=== PATIENT | male | born 1990 ===

== ENCOUNTER 2018-07-22 21:25 | Emergency (ER) | payer MEDICAID ==
[2018-07-22 22:29] VITALS: BMI 25.0
--- NOTE | 2018-07-22 23:18 | ED PDOC ---
Arrival/HPI - General Chief Complaint: Chest Pain Time Seen by Provider: 07/22/18 22:30 - History of Present Illness Narrative History of Present Illness (Text): 07/22/18 23:17 27-year-old male with no significant past medical history, reports developing intermittent plapitations, midsternal chest discomfort, and difficulty sleeping which started early this morning after he went out drinking that night at a [employer]. He was told by his friends that the rum punch he was drinking from may have been "spiked." He states that he recalls the entire events from last night, and did not pass out. Reports no chest pain or palpitations now. Otherwise: (-) radiation, (-) diaphoresis, (-) dyspnea, (-) pleuritic component, (-) ripping or tearing quality, (-) positional component, (-) exertional component, (-) dizziness, (-) syncope, (-) abdominal pain, (-) nausea, (-) vomiting, (-) calf swelling/pain, (-) recent travel, (-) drug use, (-) neuro deficits. Past Medical History - Infectious Disease Hx of Infectious Diseases: None - Psychiatric Hx Substance Use: No Family/Social History Family/Social History: No Known Family HX Smoking Status: Never Smoked Hx Alcohol Use: No Hx Substance Use: No Allergies/Home Meds Allergies/Adverse Reactions: Allergies No Known Allergies Allergy (Verified 07/22/18 22:29) Home Medications: Home Meds Medication Instructions Recorded Confirmed No Known Home Med 07/22/18 07/22/18 Review of Systems - Review of Systems Constitutional: absent: Fatigue, Fevers Respiratory: absent: SOB, Cough Cardiovascular: Chest Pain, Palpitations. absent: Edema Gastrointestinal: absent: Abdominal Pain, Nausea, Vomiting Musculoskeletal: absent: Arthralgias, Back Pain, Neck Pain Skin: absent: Rash, Pruritis, Skin Lesions Neurological: absent: Headache, Dizziness Physical Exam Vital Signs Temp Pulse Resp BP Pulse Ox 07/22/18 22:29 98.4 F 101 H 16 93/41 L 97 Temperature: Afebrile Blood Pressure: Normal Pulse: Regular Respiratory Rate: Normal Appearance: Positive for: Well-Appearing, Non-Toxic, Comfortable Pain Distress: None Mental Status: Positive for: Alert and Oriented X 3 - Systems Exam Head: Present: Atraumatic, Normocephalic Pupils: Present: PERRL Extroacular Muscles: Present: EOMI Conjunctiva: Present: Normal Mouth: Present: Moist Mucous Membranes Neck: Present: Normal Range of Motion Respiratory/Chest: Present: Clear to Auscultation, Good Air Exchange. No: Respiratory Distress, Accessory Muscle Use Cardiovascular: Present: Regular Rate and Rhythm, Normal S1, S2. No: Murmurs, Irregular Rhythm, Tachycardic Abdomen: No: Tenderness, Distention, Peritoneal Signs Back: Present: Normal Inspection Upper Extremity: Present: Normal Inspection. No: Cyanosis, Edema Lower Extremity: Present: Normal Inspection. No: Edema Neurological: Present: GCS=15, CN II-XII Intact, Speech Normal, Motor Func Grossly Intact, Normal Sensory Function Skin: Present: Warm, Dry, Normal Color. No: Rashes Psychiatric: Present: Alert, Oriented x 3, Normal Insight, Normal Concentration Medical Decision Making ED Course and Treatment: 07/22/18 23:18 Plan: -- Labs -- UDS -- EKG -- CXR -- Reassess and disposition EKG: ST at 113 bpm, (-) acute ST changes, as read by ENRIQUE. CXR : NAD, as read by ENRIQUE. Labs : cbc wnl cmp wnl trop (-) UDS +opiates and cocaine On reevaluation, patient reports no CP or palpitations at this time. On exam, patient remains awake alert and oriented 3 in no acute distress. Repeat neuro exam shows no focal findings. Results d/w the patient. States that he has a scheduled appointment for follow up with his pmd already. Advised to follow up with primary care physician in 1-2 days without fail. R eturn to the emergency room at any time for any new or worsening symptoms. Patient states he fully agrees with and understands discharge instructions. States that he agrees with the plan and disposition. Verbalized and repeated discharge instructions and plan. I have given the patient opportunity to ask any additional questions. - RAD Interpretation Radiology Orders: 07/22/18 22:58 CHEST PORTABLE [RAD] Stat - PA / WINE MASTER / Resident Statement MD/DO has reviewed & agrees with the documentation as recorded. Disposition/Present on Arrival - Present on Arrival Any Indicators Present on Arrival: No History of DVT/PE: No History of Uncontrolled Diabetes: No Urinary Catheter: No History of Decub. Ulcer: No History Surgical Site Infection Following: None - Disposition Have Diagnosis and Disposition been Completed?: Yes Diagnosis: Adverse drug reaction Disposition: HOME/ ROUTINE Disposition Time: 01:00 Patient Plan: Discharge Patient Problems: Current Active Problems Problem Status Onset Adverse drug reaction Acute Condition: STABLE Discharge Instructions (ExitCare): Adverse Drug Reactions, Adult (DC), Drug Testing Additional Instructions: Thank you for letting us take care of you today. You were treated for adverse reaction to drugs. The emergency medical care you received today was directed at your acute symptoms. Return to the Emergency Department if your symptoms worsen, do not improve, or if you have any other problems. Please contact your doctor in 2 days for re-evaluation and follow up. Bring any paperwork you were given at discharge with you along with any medications you are taking to your follow up visit. Our treatment cannot replace ongoing medical care by a primary care provider (PCP) outside of the emergency department. Thank you for allowing the [facility] team to be part of your care today. Forms: [employer] ([place]), WORK NOTE
[2018-07-22 23:26] LABS: BASO # 0.02 K/mm3 (0.0-2.0); BASO % 0.2 % (0.0-3.0); EOS # 0.1 (0.0-0.7); EOS % 0.7 % (1.5-5.0); HEMOGLOBIN 16.1 g/dL (14.0-18.0); LYMPH # 2.7 (1.2-3.4); LYMPH % 31.6 % (22.0-35.0); MEAN CELL VOLUME 85.8 fl (80.0-105.0); MEAN CORPUSCULAR HEMOGLOBIN 29.7 pg (25.0-35.0); MEAN CORPUSCULAR HGB CONC 34.6 g/dl (31.0-37.0); MEAN PLATELET VOLUME 9.5 fl (7.0-11.0); MONO # 0.6 (0.1-0.6); MONO % 6.7 % (1.0-6.0); RBC 5.42 10^6/uL (3.5-6.1); RED CELL DISTRIBUTION WIDTH 12.3 % (11.5-14.5); WHITE BLOOD COUNT 8.4 10^3/uL (4.5-11.0)
[2018-07-22 23:35] LABS: ALB/GLOB RATIO 1.4 (1.1-1.8); ALBUMIN 5.4 g/dL (3.0-4.8); ALT/SGPT 33 U/L (7-56); AST/SGOT 31 U/L (17-59); BLOOD UREA NITROGEN 13 mg/dL (7-21); CALCIUM 10.3 mg/dL (8.4-10.5); GFR NON-AFRICAN AMERICAN > 60
[2018-07-22 23:52] LABS: TROPONIN I < 0.01 ng/mL
[2018-07-23 00:31] LABS: BARBITURATES, UR NEGATIVE (NEGATIVE); BENZODIAZEPINES, UR NEGATIVE (NEGATIVE); OPIATES, UR POSITIVE (NEGATIVE); PHENCYCLIDINE, UR NEGATIVE (NEGATIVE)
[2018-07-23 01:10] VITALS: BP 105/62; PULSE 89; RESP 18; TEMP 98.2; O2SAT 100
--- NOTE | 2018-07-23 08:33 | RAD ---
Date of service: 07/22/2018 HISTORY: CP COMPARISON: No prior. FINDINGS: LUNGS: No active pulmonary disease. PLEURA: No significant pleural effusion identified, no pneumothorax apparent. CARDIOVASCULAR: No aortic atherosclerotic calcification present. Normal cardiac size. No pulmonary vascular congestion. OSSEOUS STRUCTURES: No significant abnormalities. VISUALIZED UPPER ABDOMEN: Normal. OTHER FINDINGS: None. IMPRESSION: No active disease.
--- NOTE | 2018-07-23 10:16 | CARD ---
APPROVED REPORT Date of service: 07/22/2018 EKG Measurement Heart [id number] <Conclusion> Sinus tachycardia Nonspecific T wave abnormality Abnormal ECG
== END 2018-07-23 01:10 | disposition home or self-care (01) ==
LOC: ED 21:25
DX: R07.89 Other chest pain (principal); T50.905A Adverse effect of unspecified drugs, medicaments and biological substances, initial encounter